=== PATIENT | male | born 1960 | race Caucasian/White ===

== ENCOUNTER 2019-07-13 23:12 | Observation (INO) ==
[2019-07-14] MEDS ORDERED: hydrALAZINE 20 MG/1 ML VIAL IV STA (02:21)
[2019-07-14] MEDS ORDERED: ONDANSETRON 4 MG/2 ML VIAL IV STA (02:21)
[2019-07-14 02:37] LABS: Basophils # 0.1 10*3/uL (0.0-0.2); Basophils % 0.7 % (0.0-0.8); Eosinophils # 0.1 10*3/uL (0.0-0.87); Hematocrit 42.3 VOL% (42.0-52.0); Hemoglobin 14.6 GM/DL (14.0-18.0); Immature Granulocytes % 0.7 %; Immature Granulocytes Absolute 0.08 #; Lymphocytes # 2.1 10*3/uL (1.4-4.0); Lymphocytes % 19.1 % (21.2-54.2); Mean Corpuscular HGB Conc 34.5 GM/DL (32-36); Mean Corpuscular Volume 90.4 FL (87-102); Neutrophils % 70.5 % (38.7-73.9); Platelet Count 290 T/CUMM (130-400); Red Blood Count 4.68 MC/CUMM (3.8-5.5); Red Cell Distribution Width 11.8 % (9.3-17.3)
[2019-07-14 02:44] LABS: PT Patient Result 10.5 SECS (9.6-12.2)
[2019-07-14 02:50] LABS: Albumin 4.2 G/DL (3.4-5.0); Bilirubin,Total 0.5 MG/DL (0.2-1.0); Calcium 9.5 MG/DL (8.5-10.1); Osmolality,Calculated 279.4 MOS/KG (273-304); Total Protein 7.9 G/DL (6.4-8.3)
[2019-07-14] MEDS ORDERED: BISACODYL 5 MG TABLET PO PRN (04:58)
[2019-07-14] MEDS ORDERED: hydrALAZINE 20 MG/1 ML VIAL IV PRN (04:58)
[2019-07-14] MEDS ORDERED: guaiFENesin/DM ER 600-30 MG TABLET PO PRN (04:58)
[2019-07-14] MEDS ORDERED: MORPHINE 4 MG/1 ML VIAL IV PRN (04:58)
[2019-07-14] MEDS ORDERED: ACETAMINOPHEN 325 MG TABLET PO PRN (04:58)
[2019-07-14] MEDS ORDERED: ONDANSETRON 4 MG/2 ML VIAL IV PRN (04:58)
[2019-07-14] MEDS ORDERED: NICOTINE 21 MG/24 HR PATCH TRANSDERM PRN (04:58)
[2019-07-14] MEDS ORDERED: diphenhydrAMINE CAP 25 MG CAPSULE PO PRN (04:58)
[2019-07-14 06:18] LABS: Risk Ratio 4.76; VLDL CHOLESTEROL 35.6 MG/DL
[2019-07-14 06:54] LABS: Apearance,Urine CLEAR (Clear); Bilirubin,Urine Negative (Negative); Blood, Urine Negative (Negative); Glucose,Urine (UA) Negative (Negative); Ketones,Urine Negative (Negative); Mucus,Urine Occasional /LPF (Occasional); Nitrite,Urine Negative (Negative); Protein,Urine Negative; RBC,Urine 1 /HPF (0-4); Urine Color Yellow (Yellow); Urine Specific Gravity 1.017 (1.001-1.035); Urine Urobilinogen < 2.0 EU/DL (0.2-1.0); WBC,Urine 1 /HPF (0-6)
[2019-07-14 07:09] LABS: Barbiturates Screen,Urine Negative (Negative); Benzodiazepines Screen,Urine Negative (Negative); Cannabinoid Screen,Urine Negative (Negative); Opiate Screen,Urine Negative (Negative); Phencyclidine Screen,Urine Negative (Negative)
[2019-07-14] MEDS ORDERED: OLMESARTAN 20 MG TABLET PO SCH (09:00)
[2019-07-14] MEDS ORDERED: ASPIRIN 325 MG TABLET PO SCH (09:00)
[2019-07-14] MEDS ORDERED: amLODIPine 10 MG TABLET PO SCH (09:00)
[2019-07-14] MEDS ORDERED: PANTOPRAZOLE 40 MG TABLET PO SCH (09:00)
[2019-07-14 12:14] VITALS: BP 152/93
== END 2019-07-14 15:58 | disposition home or self-care (01) ==
LOC: N.EDINP 23:12 → N.ED 23:12 → N.TELEN 07-14 05:26
PROVIDERS: ADMIT Internal Medicine Geriatric Medicine; ATTEND Internal Medicine Geriatric Medicine

== ENCOUNTER 2022-08-04 12:31 | Inpatient (IN) ==
[2022-08-04 13:45] LABS: Basophils % 0.3 % (0.0-0.8); Eosinophils # 0.2 10*3/uL (0.0-0.87); Eosinophils % 1.7 % (0.00-10.9); Hemoglobin 13.8 GM/DL (14.0-18.0); Immature Granulocytes % 1.8 %; Immature Granulocytes Absolute 0.19 #; Lymphocytes # 2.2 10*3/uL (1.4-4.0); Lymphocytes % 20.2 % (21.2-54.2); Mean Corpuscular HGB Conc 33.7 GM/DL (32-36); Mean Corpuscular Volume 92.1 FL (87-102); Mean Platelet Volume 8.5 FL (9.6-12.0); Monocytes # 1.2 10*3/uL (0.11-0.8); Monocytes % 10.9 % (1.7-12.7); Neutrophils % 65.1 % (38.7-73.9); Platelet Count 228 T/CUMM (130-400); Red Blood Count 4.45 MC/CUMM (3.8-5.5); Red Cell Distribution Width 12.3 % (9.3-17.3); White Blood Count 10.7 T/CUMM (4-12)
[2022-08-04 14:05] LABS: Albumin 3.6 G/DL (3.4-5.0); Bilirubin,Total 1.2 MG/DL (0.20-1.00); Calcium 8.9 MG/DL (8.5-10.1); Osmolality,Calculated 274.2 MOS/KG (273-304); Potassium 4.6 MMOL/L (3.5-5.1); Total Protein 6.5 G/DL (6.4-8.2)
[2022-08-04] MEDS ORDERED: SODIUM CHLORIDE 0.9% 1,000 ML IV STA ×2 (15:37→16:12)
[2022-08-04] MEDS ORDERED: ACETAMINOPHEN 325 MG TABLET PO PRN (16:38)
[2022-08-04] MEDS ORDERED: DOCUSATE SODIUM 100 MG CAPSULE PO PRN (16:38)
[2022-08-04] MEDS ORDERED: ONDANSETRON 4 MG/2 ML VIAL IV PRN (16:38)
[2022-08-04] MEDS: PANTOPRAZOLE 40 MG TABLET PO SCH (17:11)
[2022-08-04] MEDS: SODIUM CHLORIDE 0.9% 1,000 ML IV SCH (17:11)
[2022-08-04 19:01] LABS: Bilirubin,Urine Negative (Negative); Blood, Urine Negative (Negative); Glucose,Urine (UA) Negative (Negative); Ketones,Urine Negative (Negative); Mucus,Urine Occasional /LPF (Occasional); Nitrite,Urine Negative (Negative); Protein,Urine Negative (Negative); RBC,Urine 1 /HPF (0-4); Urine Appearance CLEAR (Clear); Urine Color Yellow (Yellow); Urine Specific Gravity 1.017 (1.001-1.035)
[2022-08-04] MEDS: INSULIN LISPRO 100 UNIT/ML SUBCUT SCH (23:27)
[2022-08-04] MEDS: ATORVASTATIN 40 MG TABLET PO SCH (23:39)
[2022-08-04] MEDS: DOCUSATE SODIUM 100 MG CAPSULE PO SCH (23:39)
[2022-08-04] MEDS: QUEtiapine 100 MG TABLET PO SCH (23:39)
[2022-08-05] MEDS: SODIUM CHLORIDE 0.9% 1,000 ML IV SCH ×4 (02:54→20:31)
[2022-08-05 05:30] LABS: Basophils % 0.3 % (0.0-0.8); Eosinophils # 0.1 10*3/uL (0.0-0.87); Eosinophils % 1.5 % (0.00-10.9); Hematocrit 35.9 VOL% (42.0-52.0); Hemoglobin 11.8 GM/DL (14.0-18.0); Immature Granulocytes % 1.3 %; Immature Granulocytes Absolute 0.09 #; Lymphocytes # 1.6 10*3/uL (1.4-4.0); Lymphocytes % 24.1 % (21.2-54.2); Mean Corpuscular HGB Conc 32.9 GM/DL (32-36); Mean Corpuscular Volume 94.5 FL (87-102); Mean Platelet Volume 8.8 FL (9.6-12.0); Monocytes # 0.8 10*3/uL (0.11-0.8); Monocytes % 12.3 % (1.7-12.7); Neutrophils % 60.5 % (38.7-73.9); Platelet Count 200 T/CUMM (130-400); Red Cell Distribution Width 12.2 % (9.3-17.3); White Blood Count 6.7 T/CUMM (4-12)
[2022-08-05 05:42] LABS: Osmolality,Calculated 280.5 MOS/KG (273-304); Potassium 4.4 MMOL/L (3.5-5.1)
[2022-08-05 05:45] LABS: Risk Ratio 2.71; VLDL Cholesterol 21.6 MG/DL
[2022-08-05] MEDS: INSULIN LISPRO 100 UNIT/ML SUBCUT SCH ×4 (08:25→20:25)
[2022-08-05] MEDS: DOCUSATE SODIUM 100 MG CAPSULE PO SCH ×2 (08:26→20:24)
[2022-08-05] MEDS: SERTRALINE 25 MG TABLET PO SCH (08:26)
[2022-08-05] MEDS: ASPIRIN EC 81 MG TABLET PO SCH (08:26)
[2022-08-05] MEDS: PANTOPRAZOLE 40 MG TABLET PO SCH (08:26)
[2022-08-05] MEDS: CLOPIDOGREL 75 MG TABLET PO SCH (08:26)
[2022-08-05] MEDS: ATORVASTATIN 40 MG TABLET PO SCH (20:24)
[2022-08-05] MEDS: QUEtiapine 100 MG TABLET PO SCH (20:24)
[2022-08-06] MEDS: SODIUM CHLORIDE 0.9% 1,000 ML IV SCH ×3 (05:36→22:37)
[2022-08-06] MEDS: INSULIN LISPRO 100 UNIT/ML SUBCUT SCH ×4 (08:12→20:07)
[2022-08-06 08:57] LABS: Basophils % 0.3 % (0.0-0.8); Eosinophils # 0.1 10*3/uL (0.0-0.87); Eosinophils % 1.5 % (0.00-10.9); Hematocrit 38.8 VOL% (42.0-52.0); Hemoglobin 12.7 GM/DL (14.0-18.0); Immature Granulocytes % 1.2 %; Immature Granulocytes Absolute 0.09 #; Lymphocytes # 1.7 10*3/uL (1.4-4.0); Lymphocytes % 23.5 % (21.2-54.2); Mean Corpuscular HGB Conc 32.7 GM/DL (32-36); Mean Corpuscular Volume 94.9 FL (87-102); Mean Platelet Volume 8.7 FL (9.6-12.0); Monocytes # 0.8 10*3/uL (0.11-0.8); Monocytes % 11.1 % (1.7-12.7); Neutrophils % 62.4 % (38.7-73.9); Platelet Count 214 T/CUMM (130-400); Red Blood Count 4.09 MC/CUMM (3.8-5.5); White Blood Count 7.4 T/CUMM (4-12)
[2022-08-06] MEDS: CLOPIDOGREL 75 MG TABLET PO SCH (09:07)
[2022-08-06] MEDS: DOCUSATE SODIUM 100 MG CAPSULE PO SCH ×2 (09:08→20:07)
[2022-08-06] MEDS: ASPIRIN EC 81 MG TABLET PO SCH (09:08)
[2022-08-06] MEDS: SERTRALINE 25 MG TABLET PO SCH (09:08)
[2022-08-06] MEDS: PANTOPRAZOLE 40 MG TABLET PO SCH (09:08)
[2022-08-06 09:14] LABS: Calcium 8.3 MG/DL (8.5-10.1); Osmolality,Calculated 283.1 MOS/KG (273-304); Potassium 4.5 MMOL/L (3.5-5.1)
[2022-08-06] MEDS ORDERED: POTASSIUM CHLORIDE RIDER 10 MEQ/100 ML PREMIX IV PRN (12:41)
[2022-08-06] MEDS ORDERED: MAGNESIUM SULF RIDER 2 GM/50 ML PREMIX IV PRN (12:41)
[2022-08-06] MEDS ORDERED: HEPARIN/NACL 0.9% 2 UNITS/ML 3,000 UNIT/1,500 ML BAG IV ONE (15:45)
[2022-08-06] MEDS ORDERED: MIDAZOLAM 2 MG/2 ML VIAL ONE (16:05)
[2022-08-06] MEDS ORDERED: fentaNYL 100 MCG/2 ML VIAL ONE (16:05)
[2022-08-06] MEDS ORDERED: HEPARIN 5,000 UNIT/1 ML VIAL ONE (16:26)
[2022-08-06] MEDS ORDERED: NITROGLYCERIN DRIP 50 MG/250 ML BOTTLE IV ONE (16:28)
[2022-08-06] MEDS: LOSARTAN 25 MG TABLET PO SCH (20:07)
[2022-08-06] MEDS: QUEtiapine 100 MG TABLET PO SCH (20:08)
[2022-08-06] MEDS: ATORVASTATIN 40 MG TABLET PO SCH (20:08)
[2022-08-06 20:14] VITALS: BP 134/72
[2022-08-06] MEDS ORDERED: MEGESTROL 40 MG TABLET PO SCH (21:00)
[2022-08-07 04:55] LABS: Basophils % 0.3 % (0.0-0.8); Eosinophils # 0.1 10*3/uL (0.0-0.87); Eosinophils % 1.6 % (0.00-10.9); Hematocrit 35.9 VOL% (42.0-52.0); Hemoglobin 11.8 GM/DL (14.0-18.0); Immature Granulocytes Absolute 0.07 #; Lymphocytes % 28.9 % (21.2-54.2); Mean Corpuscular HGB Conc 32.9 GM/DL (32-36); Mean Platelet Volume 8.8 FL (9.6-12.0); Monocytes # 0.9 10*3/uL (0.11-0.8); Monocytes % 13.2 % (1.7-12.7); Platelet Count 201 T/CUMM (130-400); Red Blood Count 3.82 MC/CUMM (3.8-5.5); Red Cell Distribution Width 11.9 % (9.3-17.3)
[2022-08-07 05:09] LABS: Calcium 8.5 MG/DL (8.5-10.1); Osmolality,Calculated 274.7 MOS/KG (273-304); Potassium 4.2 MMOL/L (3.5-5.1)
[2022-08-07] MEDS: CLOPIDOGREL 75 MG TABLET PO SCH (08:41)
[2022-08-07] MEDS: DOCUSATE SODIUM 100 MG CAPSULE PO SCH (08:41)
[2022-08-07] MEDS: ASPIRIN EC 81 MG TABLET PO SCH (08:42)
[2022-08-07] MEDS: LOSARTAN 25 MG TABLET PO SCH (08:42)
[2022-08-07] MEDS: INSULIN LISPRO 100 UNIT/ML SUBCUT SCH ×2 (08:42→11:28)
[2022-08-07] MEDS: PANTOPRAZOLE 40 MG TABLET PO SCH (08:42)
[2022-08-07] MEDS: SERTRALINE 25 MG TABLET PO SCH (08:42)
[2022-08-07] MEDS: SODIUM CHLORIDE 0.9% 1,000 ML IV SCH (10:56)
== END 2022-08-07 14:40 | disposition home or self-care (01) | DRG 247 ==
LOC: N.ED 12:31 → N.EDINP 12:31 → SUATTDRO 16:37 → N.EDINP 22:53 → N.TELEN 23:00 → SUATTDRO 08-06 09:48
PROVIDERS: ADMIT Emergency Medicine; ATTEND Emergency Medicine
PROC: CLCCHCL (ICD-10-PCS; 2022-08-06 15:15)